=== PATIENT | female | born 1980 | race African-American/Black ===

== ENCOUNTER 2018-03-25 10:52 | Day surgery (SDC) | payer OTHER ==
[2018-03-22 19:34] VITALS: BMI 19.6
[2018-03-25 12:50] VITALS: TEMP 98.6
[2018-03-25] MEDS ORDERED: oxyCODONE HCL 5 MG TABLET PO PRN ×2 (13:38)
[2018-03-25] MEDS ORDERED: DEXAMETHASONE SOD PHOSPHATE 4 MG/1 ML VIAL ONE (15:23)
[2018-03-25] MEDS ORDERED: MIDAZOLAM HCL 2 MG/2 ML SINGLE DOSE VIAL ONE (15:23)
--- NOTE | 2018-03-25 15:31 | OP ---
Operative Note - Note: Operative Date: 03/25/18 Pre-Operative Diagnosis: Right kidney stones Operation: Right ESWL Findings: 6 mm lover calyx renal stone Post-Operative Diagnosis: Same as Pre-op Surgeon: Perez Bishop Anesthesia: Fractional
[2018-03-25] MEDS ORDERED: KETOROLAC TROMETHAMINE 30 MG/1 ML VIAL ONE (15:54)
[2018-03-25 17:41] VITALS: BP 117/76; PULSE 72
--- NOTE | 2018-03-25 19:54 | OP ---
DATE OF OPERATION: 03/25/2018 PREOPERATIVE DIAGNOSIS: Right renal stone. POSTOPERATIVE DIAGNOSIS: Right renal stone. PROCEDURE: Right extracorporeal shock wave lithotripsy. ATTENDING: Ciara Camara MD ANESTHESIA: Fractional. DESCRIPTION OF OPERATION: The patient was brought in the operating room, placed in supine position on the operating room table. Ultrasonography and fluoroscopy were performed. A 6-mm right lower-pole stone was identified. At this point, anesthesia and preoperative antibiotics were given. With this accomplished, extracorporeal shock wave lithotripsy was started; 2500 impulses at 20 joules of power were administered to the stone with excellent fragmentation noted under real-time ultrasonography and fluoroscopy. No complications were noted. The disposition of the patient was to the recovery room. CIARA CAMARA M.D. [id number]
== END 2018-03-25 17:41 | disposition home or self-care (01) ==
LOC: JASU-SURG 10:52
PROVIDERS: ATTEND Urology
PROC: 0TF3XZZ Fragmentation in Right Kidney Pelvis, External Approach (ICD-10-PCS; principal; 2018-03-25 13:15)
DX: N20.0 Calculus of kidney (principal)
CPT/HCPCS: 36415; 84702; 84703